=== PATIENT | male | born 1950 | race Hispanic/Latino ===

== ENCOUNTER 2019-08-14 07:49 | Outpatient (CLI) | payer MEDICARE, OTHER ==
[2019-08-14 12:23] LABS: Hemoglobin 14.9 g/dL (14.0-18.0); Mean Corpuscular HGB CONC 33.3 g/dL (32.0-36.0); Mean Corpuscular Hemoglobin 28.9 pg (27.0-31.0); Mean Platelet Volume 8.7 fL (7.4-10.4); Platelet Count 172 thou/uL (130-400); RBC Distribution Width 12.4 % (11.5-14.5); Red Blood Cell (RBC) Count 5.13 mill/uL (4.70-6.10); White Blood Cell (WBC) Count 5.5 thou/uL (4.8-10.8)
[2019-08-14 12:29] LABS: Bilirubin Negative (Negative); Blood, Urine Negative (Negative); Clarity Clear (Clear); Glucose, Urine (Dipstick) Normal (Negative); Leukocyte Negative Leu/uL (Negative); Nitrite Negative (Negative); Protein, Urine (Dipstick) 10 mg/dL (Neg-Trace); RBC/HPF 0-3 HPF (0-3); Squamous Epithelial None Seen HPF (0-3); Urobilinogen Normal mg/dL (Less than 2); WBC/HPF 0-3 HPF (0-3)
[2019-08-14 12:39] LABS: Bacteria/HPF Rare-Few HPF (None Seen); Sperm/HPF 3+ HPF (None Seen)
[2019-08-14 12:46] LABS: Anion Gap 13 mmol/L (10-20); BUN (Urea Nitrogen) 12 mg/dL (8.4-25.7); Calc. Creatinine Clearance 0 mL/min (70-130); Calcium 9.1 mg/dL (7.8-10.44); Carbon Dioxide 26 mmol/L (23-31); Chloride 106 mmol/L (98-107); Estimated GFR-MDRD 67; Glucose 119 mg/dL (80-115); PTT 28.3 SEC (22.9-36.1); Potassium 3.9 mmol/L (3.5-5.1); Sodium 141 mmol/L (136-145)
[2019-08-14 12:47] LABS: Prothrombin Time 13.5 SEC (12.0-14.7)
== END 2019-08-14 07:50 | disposition home or self-care (01) ==
LOC: LABBT 07:49
PROVIDERS: ATTEND Urology
DX: Z01.818 Encounter for other preprocedural examination (principal); Z12.5 Encounter for screening for malignant neoplasm of prostate; N40.1 Benign prostatic hyperplasia with lower urinary tract symptoms; N20.0 Calculus of kidney; N52.9 Male erectile dysfunction, unspecified; I25.10 Atherosclerotic heart disease of native coronary artery without angina pectoris; R33.9 Retention of urine, unspecified; N28.1 Cyst of kidney, acquired; R30.0 Dysuria; Z87.442 Personal history of urinary calculi
CPT/HCPCS: 80048; 81001; 85027; 85610; 85730; 87086; 93005; 93010

== ENCOUNTER 2019-08-28 06:22 | Day surgery (SDC) | payer MEDICARE, OTHER ==
[2019-08-14 10:15] VITALS: BMI 27.4
[2019-08-28] MEDS ORDERED: Levofloxacin 500 mg/D5W 100 ml Premix Bag ONE (07:09)
[2019-08-28] MEDS ORDERED: Fentanyl 100 MCG/2 ML VIAL ONE (09:13)
[2019-08-28] MEDS ORDERED: Iothalamate Meglumine 60% 50 ML VIAL FS ONE (09:15)
[2019-08-28] MEDS ORDERED: EPHEDRINE 25 MG/5 ML SYRINGE ONE (10:12)
[2019-08-28] MEDS ORDERED: PROPOFOL 200 MG/20 ML VIAL ONE (10:12)
[2019-08-28] MEDS ORDERED: Lidocaine 1% PF 5 ML VIAL ONE (10:12)
[2019-08-28] MEDS ORDERED: Propofol 500 MG/50 ML VIAL ONE (10:18)
[2019-08-28] MEDS ORDERED: Phenazopyridine HCl 97.5 MG TABLET ONE (10:53)
--- NOTE | 2019-08-28 13:31 | OP ---
DATE OF PROCEDURE: 08/28/2019 PREOPERATIVE DIAGNOSES: 1. A 69-year-old male with history of persistent benign prostatic hyperplasia symptoms. 2. Bothersome retrograde ejaculation. POSTOPERATIVE DIAGNOSES: 1. A 69-year-old male with history of persistent benign prostatic hyperplasia symptoms. 2. Bothersome retrograde ejaculation. PROCEDURES PERFORMED: Cystoscopy, UroLift implant x8. ANESTHESIA: TIVA. COMPLICATIONS: None apparent. DISPOSITION: To recovery room in stable condition. INDICATIONS FOR PROCEDURE AND HISTORY: Mr. Gramajo is a 69-year-old male with history of BPH, initially referred [facility] for nonobstructing left renal calculi. The patient has significant BPH symptoms. He has been on dual medical therapy with persistent BPH symptoms, moreover significantly bothered by retrograde ejaculation. His pretreatment IPSS score is 25, and he desires to proceed with UroLift. We discussed options of TURP versus UroLift and he desires less invasive approach, moreover bothered by retrograde ejaculation and therefore desires to proceed. Risks and complications of the procedure were reviewed with him in detail including, but not limited to, bleeding, pain, infection, injury to adjacent organs, chronic pain, possible secondary procedure due to migrated implant, urolithiasis, possible stage intervention was reviewed with him in detail and he desired to proceed without reservation. DESCRIPTION OF PROCEDURE: After an informed consent was signed, the patient was taken to the operating room, placed in a dorsal lithotomy position with the genital area prepped and draped in the usual surgical sterile fashion. A 21[place] cystoscope was utilized for cystoscopy, which demonstrated again normal anterior urethra. The meatus was mildly snug passing the 21-[place], however, this passed atraumatically. The prostatic urethra was staged demonstrating bilobar hyperplasia moderately to severe obstruction. There was a slight high median bar, however, no evidence of intravesical median lobe. Bladder was entered, which demonstrated the UOs about 3 mm proximal to the bladder neck, and diffuse bladder trabeculation consistent with chronic outlet obstruction noted. We subsequently passed a 20-[place] visual obturator UroLift cystoscope. We again staged the urethra and we approached the left lateral lobe first. Care was taken to stay approximately a centimeter and a half distal to the bladder neck. We deployed the left implant first elevating the bladder neck. We then subsequently passed 4 total implants on the right lobe and 4 on the left total, total of 8 implants. His prostatic morphology demonstrates that his prostate volume may be somewhat larger than anticipated on volume study. He does have some bulging lateral lobes despite anterior elevation. Therefore, he required 8 implants to resolve his obstructive component. At the end of the procedure, he had a nice anterior channel, with resolution of obstructing lateral lobes. He tolerated the procedure well. An 18-[place] Brown catheter was passed without difficulty, I will monitor his urine output. If no significant hematuria, we will initiate voiding trial prior to discharge. He will follow up with me tomorrow for close followup. Job ID: [id number] [facility]
== END 2019-08-28 15:35 | disposition home or self-care (01) ==
LOC: SDC 06:22
PROVIDERS: ATTEND Urology
PROC: 0T7D8DZ Dilation of Urethra with Intraluminal Device, Via Natural or Artificial Opening Endoscopic (ICD-10-PCS; principal; 2019-08-28)
DX: N40.1 Benign prostatic hyperplasia with lower urinary tract symptoms (principal); N13.8 Other obstructive and reflux uropathy; R39.14 Feeling of incomplete bladder emptying; N53.14 Retrograde ejaculation; N32.89 Other specified disorders of bladder; N20.0 Calculus of kidney; N52.9 Male erectile dysfunction, unspecified; N28.1 Cyst of kidney, acquired; I10 Essential (primary) hypertension; E78.5 Hyperlipidemia, unspecified; I25.10 Atherosclerotic heart disease of native coronary artery without angina pectoris; I25.2 Old myocardial infarction; F32.9 Major depressive disorder, single episode, unspecified; Z87.891 Personal history of nicotine dependence; Z79.02 Long term (current) use of antithrombotics/antiplatelets; Z79.82 Long term (current) use of aspirin; Z79.899 Other long term (current) drug therapy; Z95.1 Presence of aortocoronary bypass graft
CPT/HCPCS: C1889; C9740; J1956; J2001; J2704; J3010